=== PATIENT | female | born 1940 ===

== ENCOUNTER 2021-06-30 23:15 | Inpatient (IN) | payer MEDICARE ==
[~2021-06-30] VITALS: Ht 157.5 cm; Wt 72.5 kg
[2021-06-30] MEDS ORDERED: PLEASE ENTER ALLERGIES MC SCH (23:45)
--- NOTE | 2021-06-30 23:46 | NUR ---
PT BROUGHT IN A TRANSFER FROM [facility] FOR AMS, FALL, ETOH INTOXICATION. PER RECORDS FROM [facility]. PT WAS OUT DRINKING WITH HER FRIEND, PT HAD A MECHANICAL FALL AND WAS UNABLE TO MANAGE HERSELF AND HAD AMS. PT HAD NO TRAUMA, UNKNOWN LOC. PT DRINKS 1.5 MARGARITAS DAILY. PER PTS DAUGHTER WHO WAS CONTACTED. PT HAS BEEN INCREASINGLY MORE CONFUSED. PT LIVES BY HERSELF. HAD UTI X1 MONTH AGO. SHE HAS A HX OF AFIB AND IS ANTICOAGULATED (XARELTO). ADDITIONAL HX REMARKABLE FOR CHF, DM, BRADYCARDIA, ETOH ABUSE, CYSTITIS, ACUTE ON CHRONIC UTI'S. CT HEAD (-) NO ACUTE ABNOMALITY, CHRONIC SMALL VESSEL DISEASE. CXR (+) = CARDIOMEGALY, LIKELY CHF LABS: WBC (-) H & H (-) K+ = 3.2 NOT REPLACED BGL =101 TROP (-) LACTIC INITIAL 3.8 ----> 3.3 AT 2158 BNP = 152 ETOH = 0.24 UA (+) UTI MEDS GIVEN: 2.5 L LR BOLUS 3.375G ZOSYN ASSESSMENT: PT ALERT AND ORIENTED X4, GCS 14-15. SITTING UP ON GURNEY, NO DISTRESS. SBP <100. PER DR. BANKS, PRESSORS TO BE INITIATED IF MAP <60. PT ON SUPPLEMETAL 02 AT 2LPM VIA NC. PT HAD VO PLACED AT PRIOR FACILITY DRAINING WELL. CLEAR, NOT CLOUDY, SMELL NOT ASSESSED. PT HAS TWO PATENT IV'S. SKIN ITNACT. WARM AND DRY. AFIB/DARRIN ON MONITOR. DENIES CP OR ANY PHYSICAL COMPLAINTS. PROVIDED WITH CALL ARREOLA. DENIES FURTHER NEEDS.
[2021-07-01] MEDS ORDERED: VANCOMYCIN PER PHARMACY MC ONE
--- NOTE | 2021-07-01 00:14 | NUR ---
MD BANKS AWARE. PTS HR IN 40'S, HYPOTENSIVE 87/40 MAP 62. PER JOCELYN, NO IV PRESSORS AT THIS TIME. MAP GOAL >60. WILL CONTINUE TO ASSESS. PT REMOVED 20G R FOREARM IV. ADDITIONAL 20G R HAND IV PLACED AT THIS TIME.
[2021-07-01 00:26] LABS: BASOPHILS % (AUTO) 1 % (0-1); EOSINOPHILS % (AUTO) 3 % (1-7); LYMPHOCYTES % (AUTO) 38 % (22-44); MEAN CORPUSCULAR HEMOGLOBIN 32.1 pg (27.0-34.8); MEAN PLATELET VOLUME 9.6 fL (7.4-10.4); MONOCYTES % (AUTO) 9 % (2-9); NEUTROPHILS % (AUTO) 50 % (42-75); PLATELET COUNT 158 x10^3/uL (130-400); RED BLOOD COUNT 3.76 x10^6/uL (3.82-5.3); RED CELL DISTRIBUTION WIDTH 13.2 % (9.6-15.2)
[2021-07-01] MEDS ORDERED: VANCOMYCIN 1,500 MG in SODIUM CHLORIDE 0.9% 250 ML IV ONE (00:30)
[2021-07-01 00:38] LABS: ALBUMIN 2.9 g/dL (3.4-5.0); ANION GAP 8 mmol/L (5-15); CALCIUM 8.2 mg/dL (8.5-10.1); CHLORIDE 112 mmol/L (98-107)
[2021-07-01 00:43] LABS: ALANINE AMINOTRANSFERASE 18 U/L (12-78); ALKALINE PHOSPHATASE 46 U/L (45-117); BILIRUBIN,TOTAL 0.4 mg/dL (0.2-1.0); CREATININE 0.59 mg/dL (0.55-1.02); TOTAL PROTEIN 6.2 g/dL (6.4-8.2); TROPONIN I < 0.015 ng/mL (0.000-0.045)
--- NOTE | 2021-07-01 01:09 | NUR ---
REPORT GIVEN TO PATRICIA DUARTE. NO FURTHER QUESTIONS AT THIS TIME.
[2021-07-01] MEDS ORDERED: ONDANSETRON 2MG/ML, 2ML IVPush PRN ×2 (01:30→02:00)
--- NOTE | 2021-07-01 01:34 | NUR ---
HOSPITALIST AT BEDSIDE
--- NOTE | 2021-07-01 01:40 | NUR ---
REPORT GIVEN TO PATRICIA JIN.
[2021-07-01] MEDS ORDERED: ACETAMINOPHEN 325 MG TABLET PO PRN (02:00)
[2021-07-01] MEDS ORDERED: LORazepam 2 MG/ML, 1ML IV PRN ×2 (02:00)
[2021-07-01] MEDS ORDERED: POTASSIUM CHLORIDE 20 MEQ TAB.ER.PRT PO ONE (02:00)
[2021-07-01] MEDS ORDERED: MAGNESIUM SULFATE PMX 2GM/50ML 50 ML IV ONE (02:00)
[2021-07-01] MEDS ORDERED: LORazepam 1MG TABLET PO PRN (02:00)
[2021-07-01] MEDS ORDERED: LORazepam 0.5MG TABLET PO PRN (02:00)
[2021-07-01] MEDS ORDERED: POLYETHYLENE GLYCOL 17 GM PACKET PO PRN (02:00)
[2021-07-01] MEDS ORDERED: LABETALOL 5MG/ML, 20ML IVPush PRN (02:00)
[2021-07-01] MEDS ORDERED: morphine SULFATE 10 MG/ML, 1ML IVPush PRN (02:00)
[2021-07-01] MEDS ORDERED: GUAIFENESIN/DM 200-20MG, 10ML UDC PO PRN (02:00)
[2021-07-01] MEDS ORDERED: MELATONIN 5 MG TABLET PO PRN (02:00)
[2021-07-01 02:08] VITALS: BP 107/61
[2021-07-01] MEDS: ENOXAPARIN 40 MG/0.4 ML SQ SCH (02:26)
[2021-07-01] MEDS: POTASSIUM CHLORIDE 20 MEQ, MAGNESIUM SULFATE 1 GM, FOLIC ACID 1 MG, THIAMINE 200 MG, MV... IV SCH (02:32)
[2021-07-01 02:41] LABS: TROPONIN I < 0.015 ng/mL (0.000-0.045)
[2021-07-01] MEDS: CIPROFLOXACIN LACTATE 200 MG in DEXTROSE 5% 100 ML IV SCH ×2 (05:51→17:26)
[2021-07-01 07:10] VITALS: BP 139/64
[2021-07-01] MEDS ORDERED: DIGO125T85 PO (09:31)
[2021-07-01] MEDS ORDERED: RIVA20TA PO (09:31)
[2021-07-01] MEDS ORDERED: LOSA25TA25 PO (09:31)
[2021-07-01] MEDS ORDERED: BISO5TAB8 PO (09:31)
[2021-07-01] MEDS ORDERED: CITA20TA9 PO (09:31)
[2021-07-01] MEDS ORDERED: SPIR25TA5 PO (09:31)
[2021-07-01 10:36] LABS: TROPONIN I < 0.015 ng/mL (0.000-0.045)
[2021-07-01 15:10] VITALS: BP 128/74
[2021-07-01 20:31] VITALS: BP 149/71
[2021-07-02 00:43] VITALS: BP 150/87
[2021-07-02] MEDS: ENOXAPARIN 40 MG/0.4 ML SQ SCH (02:45)
[2021-07-02] MEDS: POTASSIUM CHLORIDE 20 MEQ, MAGNESIUM SULFATE 1 GM, FOLIC ACID 1 MG, THIAMINE 200 MG, MV... IV SCH (03:34)
[2021-07-02 06:01] LABS: CHLORIDE 108 mmol/L (98-107)
[2021-07-02 06:06] LABS: ANION GAP 3 mmol/L (5-15); CALCIUM 8.2 mg/dL (8.5-10.1); CREATININE 0.55 mg/dL (0.55-1.02)
[2021-07-02 06:07] LABS: BASOPHILS % (AUTO) 0 % (0-1); EOSINOPHILS % (AUTO) 4 % (1-7); LYMPHOCYTES % (AUTO) 23 % (22-44); MEAN CORPUSCULAR HEMOGLOBIN 33.3 pg (27.0-34.8); MEAN CORPUSCULAR HGB CONC 34.3 g/dL (32.4-35.8); MEAN PLATELET VOLUME 10.4 fL (7.4-10.4); MONOCYTES % (AUTO) 8 % (2-9); NEUTROPHILS % (AUTO) 65 % (42-75); PLATELET COUNT 142 x10^3/uL (130-400); RED BLOOD COUNT 3.69 x10^6/uL (3.82-5.3)
[2021-07-02] MEDS: CIPROFLOXACIN LACTATE 200 MG in DEXTROSE 5% 100 ML IV SCH ×2 (06:08→17:01)
[2021-07-02 08:28] VITALS: BP 165/89
[2021-07-02] MEDS ORDERED: METOPROLOL SUCCINATE 25 MG TAB.ER.24H PO ONE (11:00)
[2021-07-02 15:24] VITALS: BP 124/83
[2021-07-02] MEDS: DILTIAZEM 30 MG TABLET PO SCH ×2 (17:00→21:14)
[2021-07-02 20:30] VITALS: BP 125/59
[2021-07-03 02:00] VITALS: BP 130/72
[2021-07-03] MEDS: CIPROFLOXACIN LACTATE 200 MG in DEXTROSE 5% 100 ML IV SCH (05:20)
[2021-07-03] MEDS ORDERED: RIVAROXABAN 20 MG TABLET PO SCH (06:00)
[2021-07-03] MEDS ORDERED: METOPROLOL SUCCINATE 25 MG TAB.ER.24H PO SCH (06:00)
[2021-07-03] MEDS ORDERED: DILTIAZEM 60 MG TABLET PO SCH (09:00)
[2021-07-03] MEDS ORDERED: CITALOPRAM 20 MG TABLET PO SCH (09:00)
[2021-07-03] MEDS ORDERED: LOSARTAN 25MG TABLET PO SCH (09:00)
[2021-07-03] MEDS ORDERED: SPIRONOLACTONE 25 MG TABLET PO SCH (09:00)
[2021-07-03 09:28] VITALS: BP 138/84
[2021-07-03] MEDS ORDERED: DILT120C80 PO (10:57)
[2021-07-03 12:56] VITALS: BP 120/70
== END 2021-07-03 16:03 | disposition home or self-care (01) | DRG 689 ==
LOC: ED 07-01 01:57 → 5SO 07-01 02:00
PROVIDERS: ADMIT Internal Medicine; ATTEND Hospitalist
DX: N30.00 Acute cystitis without hematuria (principal); G93.41 Metabolic encephalopathy; D68.59 Other primary thrombophilia; E87.2 Acidosis; I48.20 Chronic atrial fibrillation, unspecified; I95.9 Hypotension, unspecified; R00.1 Bradycardia, unspecified; R00.0 Tachycardia, unspecified; F10.120 Alcohol abuse with intoxication, uncomplicated; D32.9 Benign neoplasm of meninges, unspecified; E87.6 Hypokalemia; I11.0 Hypertensive heart disease with heart failure; I50.9 Heart failure, unspecified; E83.42 Hypomagnesemia; F19.10 Other psychoactive substance abuse, uncomplicated; F32.9 Major depressive disorder, single episode, unspecified; F41.9 Anxiety disorder, unspecified; Z79.01 Long term (current) use of anticoagulants; Z88.0 Allergy status to penicillin
CPT/HCPCS: 36415; 71045; 80048; 80053; 80320; 83605; 83735; 83880; 84145; 84443; 84484; 85025; 93005; 93306; 99285; G0378; J1650; J3370; J3411; J3475; J3480; G0480; J0744; J7050; J7121